=== PATIENT | male | born 1985 | race Caucasian/White ===

== ENCOUNTER 2023-10-06 14:04 | Emergency (ER) | payer SELFPAY ==
[2023-10-06 14:16] VITALS: BP 153/89; PULSE 72; RESP 18; TEMP 98.6; BMI 29.2
[2023-10-06 15:00] LABS: BASO % 0.5 % (0-2.0); EOS % 4.1 % (0-4.5); HEMATOCRIT 43.9 % (35.4-49); HEMOGLOBIN 15.3 GM/dL (11.7-16.9); LYMPH % 25.6 % (8-40); MCH 30.4 pg (25.7-33.7); MCHC 34.8 g/dl (32.0-35.9); MEAN CELL VOLUME 87.4 fl (80-96); MONO % 6.5 % (3.8-10.2); NEUT % 63.3 % (42.8-82.8); PLATELET COUNT 297 10^3/uL (134-434); RBC 5.02 M/mm3 (4.00-5.60); RDW 12.7 % (11.9-15.9); WHITE BLOOD COUNT 8.7 K/mm3 (4.0-10.0)
[2023-10-06] MEDS ORDERED: ALBUTEROL SO4 2.5/IPRATROPIUM 0.5 INH SOL 3 ML VIAL.NEB. NEB ONE (15:00)
[2023-10-06] MEDS ORDERED: FLUORESCEIN NA 1 EA STRIP ONE (15:00)
[2023-10-06] MEDS ORDERED: TETRACAINE 0.5% OPHTH SOLN 2 ML BOTTLE ONE (15:01)
[2023-10-06] MEDS: ALBUTEROL SO4 2.5/IPRATROPIUM 0.5 INH SOL 3 ML VIAL.NEB. NEB ONE (15:05)
[2023-10-06] MEDS: FLUORESCEIN NA 1 EA STRIP OU ONE (15:05)
[2023-10-06] MEDS: TETRACAINE 0.5% HCL 0.6ML DROPPER.BOTTLE OU ONE (15:05)
[2023-10-06 15:19] LABS: POTASSIUM 3.9 mmol/L (3.5-5.1)
[2023-10-06 15:21] LABS: CALCIUM 9.5 mg/dL (8.5-10.1)
[2023-10-06 15:22] LABS: ALBUMIN 4.3 g/dl (3.4-5.0); BLOOD UREA NITROGEN 9.5 mg/dL (7-18)
[2023-10-06 15:26] LABS: BILIRUBIN,TOTAL 0.5 mg/dL (0.2-1)
[2023-10-06 15:28] LABS: CREATININE 0.9 mg/dL (0.55-1.3)
== END 2023-10-06 16:56 | disposition home or self-care (01) ==
LOC: JER 14:04
PROC: 3E0F7GC Introduction of Other Therapeutic Substance into Respiratory Tract, Via Natural or Artificial Opening (ICD-10-PCS; principal; 2023-10-06)
DX: J45.20 Mild intermittent asthma, uncomplicated (principal); R07.9 Chest pain, unspecified; R06.02 Shortness of breath; H57.12 Ocular pain, left eye; H53.8 Other visual disturbances
CPT/HCPCS: 36415; 71046-TC-FY; 80053; 84484; 85025; 93005; 93010; 99285-25

== ENCOUNTER 2024-01-11 11:48 | Emergency (ER) | payer OTHER ==
[2024-01-11 11:56] VITALS: BP 145/78; PULSE 65; RESP 20; TEMP 98.5; BMI 23.3
[2024-01-11] MEDS ORDERED: ACETAMINOPHEN 500 MG TABLET (FP) ONE (14:18)
[2024-01-11] MEDS ORDERED: IBUPROFEN 600 MG TABLET (FP) PO ONE (14:18)
[2024-01-11] MEDS: IBUPROFEN 600 MG TABLET (FP) PO ONE (14:21)
[2024-01-11] MEDS: ACETAMINOPHEN 500 MG TABLET (FP) PO ONE (14:22)
== END 2024-01-11 16:04 | disposition home or self-care (01) ==
LOC: JERFT 11:48
DX: M25.552 Pain in left hip (principal); M79.652 Pain in left thigh; W10.9XXA Fall (on) (from) unspecified stairs and steps, initial encounter
CPT/HCPCS: 72100-TC-FY; 73502-TC-LT-FY; 73552-TC-LT-FY; 99284-25